=== PATIENT | female | born 2000 | race Caucasian/White ===

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

== ENCOUNTER → 2021-06-05 14:26 | Outpatient (BNVA) | payer MEDICAID, SELFPAY | PROVIDERS: PCP Family Medicine; Visit Provider Nurse Practitioner | DX: J02.9 Acute pharyngitis, unspecified (principal); R07.89 Other chest pain | CPT/HCPCS: 87070; 87071; 87400; 87635; 87880 ==

== ENCOUNTER 2021-06-06 10:41 | Outpatient (CLI) | payer MEDICAID, SELFPAY ==
--- NOTE | 2021-06-06 10:45 | XR_ITS ---
WS: [id number] Chest 2 views, 06/06/2021 Clinical Data: R07.89 - Other chest pain Comparison: PA and lateral chest, 05/10/2016. Findings: No nodules, masses or effusions are seen. The heart is normal. The pulmonary vascularity is not increased. No pneumonia or pneumothorax is seen. XR/XR chest 2V* [id number] Impression: Negative chest.
== END 2021-06-06 10:42 | disposition home or self-care (01) ==
PROVIDERS: PCP Family Medicine; Visit Provider Nurse Practitioner
DX: R07.89 Other chest pain (principal)
CPT/HCPCS: 71046

== ENCOUNTER → 2021-10-01 11:33 | Outpatient (BNVA) | payer MEDICAID, SELFPAY | PROVIDERS: PCP Family Medicine; Visit Provider Nurse Practitioner Women's Health | DX: N92.1 Excessive and frequent menstruation with irregular cycle (principal) | CPT/HCPCS: 87491; 87591; 87661 ==

== ENCOUNTER 2022-04-30 09:34 | Outpatient (CLI) | payer MEDICAID, SELFPAY ==
[2022-04-30 10:31] LABS: Basophils # 0.1 10^3/uL (0.0-0.1); Basophils % 0.5 %; Eosinophils # 0.2 10^3/uL (0.0-0.8); Hematocrit 33.7 % (37.0-47.0); Hemoglobin 10.6 g/dL (11.5-15.3); Lymphocytes # 2.6 10^3/uL (1.5-6.5); Lymphocytes % 27.4 %; Mean Corpuscular HGB Conc 31.5 g/dL (30.0-36.0); Mean Corpuscular Volume 60.5 fl (81-99); Monocytes # 0.4 10^3/uL (0.2-0.9); Monocytes % 4.1 %; Neutrophils # 6.13 10^3/uL (1.8-8.0); Neutrophils % 65.5 %; Nucleated Red Blood Cells % 0 %; Platelet Count 353 10^3/cmm (130-400); Red Blood Count 5.57 10^6/uL (4.1-5.3); Red Cell Distribution Width 15.8 % (12.1-15.1); White Blood Count 9.4 10^3/uL (4.5-13.0)
[2022-04-30 10:47] LABS: Slide Review Slide Review Perform
[2022-04-30 11:07] LABS: 25 Hydroxy Vitamin D 29 ng/mL (30-100); Alanine Aminotransferase 13 U/L (0-33); Albumin Level 4.8 g/dL (3.5-5.2); Alkaline Phosphatase 69 IU/L (35-105); Anion Gap 14.7 (5-19); Aspartate Amino Transferase 18 U/L (0-32); Blood Urea Nitrogen 7 mg/dL (6-20); Calcium 9.1 mg/dL (8.5-10.5); Carbon Dioxide 24 mmol/L (22-29); Chloride 99 mmol/L (98-107); Ferritin 107 ng/mL (15-150); Globulin 2.8 g/dL (1.3-4.6); Glomerular Filtration Rate 203.5 mL/min (90-130); Glucose 93 mg/dL (65-115); Magnesium 1.8 mg/dL (1.7-2.3); Osmolality Calculated 276 mOsm/kg (285-295); Potassium 3.7 mmol/L (3.5-5.1); Sodium 134 mmol/L (136-145); Total Bilirubin 1.1 mg/dL (0.15-1.2); Total Protein 7.6 g/dL (6.6-8.7); Vitamin B12 426 pg/mL (232-1245)
[2022-04-30 11:35] LABS: Free T4 Free Thyroxine 1.02 ng/dL (0.82-1.77)
== END 2022-04-30 09:35 | disposition home or self-care (01) ==
PROVIDERS: PCP Family Medicine; Visit Provider Nurse Practitioner
DX: Z00.00 Encounter for general adult medical examination without abnormal findings (principal); R25.2 Cramp and spasm; R53.83 Other fatigue; D56.3 Thalassemia minor
CPT/HCPCS: 36415; 80053; 82306; 82607; 82728; 83735; 84439; 84443; 85025

== ENCOUNTER 2023-03-25 17:15 | Emergency (ER) | payer OTHER, MEDICAID, SELFPAY ==
[2023-03-25 17:28] VITALS: BMI 23.1
[2023-03-25 17:31] VITALS: BP 124/81; PULSE 83; RESP 18; TEMP 36.7; O2SAT 100
--- NOTE | 2023-03-25 17:55 | CTR_ITS ---
PROCEDURE INFORMATION: Exam: CT Head Without Contrast Exam date and time: 03/25/2023 6:00 PM Age: 22 years old Clinical indication: Injury or trauma; Fall; Blunt trauma (contusions or hematomas); Additional info: Trauma, RAINEY TECHNIQUE: Imaging protocol: Computed tomography of the head without contrast. Sagittal and coronal reformatted images were created and reviewed. Radiation optimization: All CT scans at this facility use at least one of these dose optimization techniques: automated exposure control; mA and/or kV adjustment per patient size (includes targeted exams where dose is matched to clinical indication); or iterative reconstruction. REPORTING DATA: Count of CT and Cardiac NM exams in prior 12 months: This patient has received 0 known CTs and 0 known cardiac nuclear medicine studies in the 12 months prior to the current study. COMPARISON: CT head wo con* [id number] 07/07/2017 2:54 PM RADIATION DOSE METRICS: Total DLP (mGy-cm): 975 FINDINGS: Brain: No acute intracranial hemorrhage. No acute infarct. No intra-axial or extra-axial masses. Hand-white matter differentiation is preserved. No cerebral edema. No extra-axial fluid collections. No midline shift. No evidence for Chiari 1 malformation. Cerebral ventricles: No hydrocephalus. Paranasal sinuses: Opacification within a left posterior ethmoid sinus. Mastoid air cells: Mastoid air cells are clear bilaterally. Orbital cavities: No acute abnormality in the visualized orbits. Bones/joints: No acute fracture. Soft tissues: The extracranial soft tissues are unremarkable. CT/CT head wo con* [id number] IMPRESSION: 1. No acute abnormality of the brain. 2. Incidental/nonacute findings are listed in the report.
--- NOTE | 2023-03-25 17:55 | W.ED.HEATRA ---
HPI - Head Injury General: Chief complaint: Headache Stated complaint: head injury, syncope Time Seen by Provider: 03/25/23 17:20 Source: patient Mode of arrival: ambulatory Limitations: no limitations History of Present Illness: Patient is a 22-year-old female presents to ED today for evaluation of a head injury. Patient states yesterday she accidentally ran into a cabinet. She states when she struck her head she immediately lost consciousness for no more than a minute . She states she struck the cabinet on the left side of her head and then when she fell struck the left side of her face. She states she had a headache all yesterday evening and into today. She states the inside of her head feels like it is going to explode out of her forehead. Yesterday there was some concern about abnormal pupils but states this has resolved. She has no neurologic complaints at this time. She does report history of headaches ever since a concussion years ago. MD Complaint: head injury and head pain Onset (ago): day(s) (yesterday evening) Place: home Loss of Consciousness: yes Location of injury: parietal Severity: severe Radiation: none Other Injuries: none Associated symptoms: Reports no associated symptoms; Deny confusion, nausea, neck pain, vertigo or vomiting Review of Systems Eyes: Denies: change in vision, blurry vision, photophobia, floaters or seeing flashes GI: Denies: nausea or vomiting Musc: Denies: neck pain Neuro: Reports: headache(s); Denies: numbness in extremities, weakness in extremities, sensory changes, lack of coordination, difficulty walking, dizziness, vertigo, confusion, behavioral changes, Slurred speech present, difficulty communicating thoughts or seizure-like activity [facility] ED PFSH: Medical History Asthma No pertinent past medical history neghx: htn,dm,thyroid,dvt/pe PCP: Luanne Tran Thalassemia minor Surgical History No pertinent past surgical history Family History Grandmother Diabetes Maternal grandmother Hypertension Maternal grandmother Family history of thyroid problem Maternal grandmother Family/Other Family history of thyroid problem Maternal aunt Denies family history of Colon cancer Ovarian cancer Heart disease Breast cancer Uterine cancer Stroke Social History Smoking and tobacco status: current some day smoker e-cigarettes E-Cigarette Details: vaporizer device and with nicotine Second hand smoke exposure: No Alcohol intake: never Substance/Drug Use: never Physical Exam Const: COMMON NORMALS: no acute distress, average body habitus, patient oriented x3, no limitations, healthy appearing, alert and well nourished ORIENTATION/CONSCIOUSNESS: Yes awake, Yes oriented to person, Yes oriented to place and Yes oriented to time HENMT: COMMON NORMALS: normocephalic, atraumatic and TM's normal bilaterally HEAD & SCALP: normal to inspection, normocephalic, atraumatic and other (TTP L parietal scalp; no hematoma/abrasion/laceration present ); no abrasion, no Salmon's sign, no hematoma and no laceration FACE & SINUS: normal facial exam and sinuses nontender; no edema TYMPANIC MEMBRANE: TM's normal bilaterally Eye: COMMON NORMALS: Equal, round and reactive pupils present and EOMs intact bilaterally GENERAL EYE: appearance normal, both eyes and all related structures and normal light reflex PUPIL: Yes Equal, round and reactive pupils present DIRECT OPHTHALMOSCOPY: Yes normal light reflex Neck/C-Spine: COMMON NORMALS: full ROM GENERAL: Yes normal visual inspection CERVICAL SPINE: No Cervical spine tenderness Resp: COMMON NORMALS: normal respiratory effort and clear to auscultation bilaterally AUSCULTATION: clear to auscultation bilaterally Cardio: COMMON NORMALS: regular rate and regular rhythm RATE: regular rate RHYTHM: regular rhythm Neuro: MARILUZ COMA SCALE: document GCS findings Sharon coma scale eye opening: Spontaneous Mariluz coma scale verbal response: Orientated Sharon coma scale motor response: Obey commands Sharon coma scale total score: 15 COMMON NORMALS: patient oriented x3, CN's II-XII intact bilaterally, moves all extremities, no focal motor deficits, no sensory deficits noted and gait normal SENSORIUM/ORIENTATION: Yes alert, Yes oriented to person, Yes oriented to place and Yes oriented to time Skin: TRAUMA: no lacerations or abrasions Course Vital Signs: Vital signs: Vital Signs Temperature 98.1 F 03/25/23 17:31 Pulse Rate 83 03/25/23 17:31 Respiratory Rate 18 03/25/23 17:31 Blood Pressure 124/81 03/25/23 17:31 Pulse Oximetry 100 03/25/23 17:31 Oxygen Delivery Me thod Room Air 03/25/23 17:31 MDM - Head Injury Medcial Decision Making CT negative. Patient will be allowed discharge with ED precautions. Lab Data Radiology Impressions Head CT 03/25/23 17:55 IMPRESSION: 1. No acute abnormality of the brain. 2. Incidental/nonacute findings are listed in the report. Discharge Plan Discharge Patient Disposition: Home Clinical Impression: Minor head injury with loss of consciousness Qualifiers: Encounter type: initial encounter Qualified Code(s): S06.9X9A - Unspecified intracranial injury with loss of consciousness of unspecified duration, initial encounter Condition: Stable Prescriptions: No Action lidocaine-epinephrine (PF) 2 %-1:200,000 solution 3 ml SUBCUT ONCE Qty: 1 0RF estradiol 0.5 mg tablet 0.5 mg PO QDAY Qty: 90 2RF Rx Instructions: use as directed Nexplanon 68 mg implant subdermal sertraline 100 mg tablet 100 mg PO DAILY 30 Days Qty: 60 0RF Rx Instructions: Take 1 tab daily for 3 weeks, then 2 tabs daily albuterol sulfate [ProAir HFA] 90 mcg/actuation HFA aerosol inhaler See Rx Instructions .ROUTE .COMPLEX Qty: 17 3RF Dose Instruction: USE 2 PUFFS EVERY 4 HOURS NEEDED FOR SHORTNESS OF BREATH OR WHEEZING Rx Instructions: USE 2 PUFFS EVERY 4 HOURS NEEDED FOR SHORTNESS OF BREATH OR WHEEZING Discharge Orders: Discharge ED (Routine); Ordered 03/25/23 Ordered By: Lara Brown Referrals: Raven Menchaca MD [Primary Care Provider] - Patient Instructions: Head Injury (DC) Coding Level of Care Code ED Human Resources Psychologist for Yahir Liang
== END 2023-03-25 18:31 | disposition home or self-care (01) ==
PROVIDERS: Emergency Provider Physician Assistant; PCP Pediatrics Adolescent Medicine
DX: S06.899A Other specified intracranial injury with loss of consciousness of unspecified duration, initial encounter (principal); F17.290 Nicotine dependence, other tobacco product, uncomplicated; W22.03XA Walked into furniture, initial encounter
CPT/HCPCS: 70450; 99284

== ENCOUNTER → 2023-10-13 10:10 | Outpatient (BNVA) | payer OTHER, MEDICAID, SELFPAY | PROVIDERS: PCP Pediatrics Adolescent Medicine; Visit Provider Nurse Practitioner Women's Health | DX: Z01.419 Encounter for gynecological examination (general) (routine) without abnormal findings (principal); Z30.9 Encounter for contraceptive management, unspecified; Z30.41 Encounter for surveillance of contraceptive pills | CPT/HCPCS: 88175 ==